=== PATIENT | male | born 1940 | race Caucasian/White ===

== ENCOUNTER → 2016-10-13 | Outpatient (CLI) | payer OTHER, BC ==
[~2016-10-13] MED LIST: ASPIRIN325 PO; ASPIRIN81 M2 PO; ATENOLOL 50 MG50 M1 PO; ATENOLOL 50MG T50 M1 PO; B-100 COMPLEX1 EAC1 PO; BENICAR40 MG PO; CALCIUM PO; CARDIZEM CD180 MG PO; CARDIZEM CD240 MG PO; COUMADIN PO; ELIQUIS5 MG PO; FINASTERIDE5 MG PO; FLECAINIDE ACE100 MG PO; FLOMAX PO; FUROSEMIDE 20 M20 M1 PO; GLUCOSAMINE &1 EACH PO; IRON; IRON PO; IRON159 MG PO; KLOR-CON 1010 MEQ PO; LANOXIN 0.120.125 M1 PO; LANSOPRAZOLE30 MG PO; LEVOTHROID75 MCG PO; LIPITOR40 MG PO; LOVAZA1000 MG PO; LOVENOX SQ; MULTAQ400 MG PO; MULTIVITAMINS PO; NIASPAN ER 101000 M1 PO; PACERONE 200 M200 M1 PO; PRAVACHOL80 MG PO; PREVACID30 M1; PREVACID30 M1 PO; PUB GLUCOSAMIN1 EACH; RAPAFLO8 MG PO; SYNTHROID88 MCG PO; TAMSULOSIN HCL0.4 M1 PO; TOPROL XL50 MG PO; VITAMIN D 11000 UNIT PO; ZETIA10 MG PO
== END ==
LOC: RAD 14:59
DX: M47.896 Other spondylosis, lumbar region (principal); M48.06 Spinal stenosis, lumbar region